=== PATIENT | female | born 1975 | race Caucasian/White ===

== ENCOUNTER 2021-04-16 15:43 | Outpatient (CLI) | payer BC, SELFPAY ==
[2021-04-16 16:10] VITALS: BP 135/88; PULSE 85; RESP 16; TEMP 37.6; O2SAT 100; BMI 31.4
[2021-04-16] MEDS: 0.9% Saline Lock 10 ML Syringe IV (16:18)
[2021-04-16 16:52] VITALS: BP 125/86; PULSE 79; RESP 16; TEMP 37.1; O2SAT 100
[2021-04-16 17:52] VITALS: BP 118/84; PULSE 77; RESP 16; TEMP 37.1; O2SAT 100
== END 2021-04-16 18:00 | disposition home or self-care (01) ==
LOC: MS3OUT 15:43 → MS3 15:45
PROVIDERS: Referring Provider Nurse Practitioner Adult Health; Visit Provider Nurse Practitioner Adult Health
DX: Z23 Encounter for immunization (principal); U07.1 COVID-19
CPT/HCPCS: J7050; M0245; Q0245; A4216